=== PATIENT | male | born 1960 | race Caucasian/White ===

== ENCOUNTER → 2017-01-20 | Outpatient (CLI) | payer MEDICARE | DX: M54.5 Low back pain (principal); M51.37 Other intervertebral disc degeneration, lumbosacral region | CPT/HCPCS: 72148 ==

== ENCOUNTER → 2017-04-28 | Outpatient (CLI) | payer MEDICARE | LOC: EXRD 13:10 | DX: M25.551 Pain in right hip (principal) | CPT/HCPCS: 73502 ==